=== PATIENT | male | born 1970 | race Caucasian/White ===

== ENCOUNTER 2017-05-09 11:24 | Outpatient (CLI) | payer OTHER ==
--- NOTE | 2017-05-09 12:10 | RAD ---
PA AND LATERAL CHEST: History: Cough. Chest pain. Comparison: 12-04-16 FINDINGS: The heart size is normal. The lungs are expanded without focal areas of consolidation, pneumothorax o r pleural effusions. Mild degenerative changes are seen in the spine. IMPRESSION: No acute process. POS: [facility]
== END 2017-05-09 11:25 | disposition home or self-care (01) ==
LOC: SCSRAD 11:24
PROVIDERS: ATTEND Nurse Practitioner
DX: R05 Cough (principal)
CPT/HCPCS: 71046

== ENCOUNTER 2018-01-15 19:38 | Emergency (ER) | payer OTHER ==
[2018-01-15] MEDS ORDERED: Metoclopramide HCl 10 MG/2 ML VIAL ONE (20:54)
[2018-01-15] MEDS ORDERED: Ketorolac Tromethamine 30 MG/ML VIAL ONE (20:54)
[2018-01-15] MEDS ORDERED: diphenhydrAMINE 50 MG/ML VIAL ONE (20:54)
[2018-01-15 20:59] LABS: #Basophils 0.1 thou/uL (0.0-0.2); #Eosinphils 0.2 thou/uL (0.0-0.7); #Lymphocytes 3.6 thou/uL (1.20-3.40); #Monocytes 0.6 thou/uL (0.11-0.59); #Neutrophils 4.5 thou/uL (1.40-6.50); %Basophils 0.7 % (0.0-1.0); %Eosinophils 2.3 % (0.0-10.0); %Lymphocytes 39.6 % (21.0-51.0); %Monocytes 6.9 % (0.0-10.0); %Neutrophils 50.5 % (42.0-75.0); Hemoglobin 17.4 g/dL (14.0-18.0); Mean Corpuscular HGB CONC 32.9 g/dL (32.0-36.0); Mean Corpuscular Hemoglobin 29.8 pg (27.0-31.0); Mean Corpuscular Volume 90.7 fL (78.0-98.0); Mean Platelet Volume 7.6 fL (7.4-10.4); Platelet Count 200 thou/uL (130-400); RBC Distribution Width 12.6 % (11.5-14.5); Red Blood Cell (RBC) Count 5.85 mill/uL (4.70-6.10)
--- NOTE | 2018-01-15 21:12 | RAD ---
AP VIEW CHEST: 01/15/2018 HISTORY: Headache. Chest pain. FINDINGS: AP view chest demonstrates the lungs to be well aerated. No evidence of active intrathoracic disease is seen. No evidence of effusions, pneumonia, or pneumothorax is seen. IMPRESSION: Unremarkable anterior-posterior view chest. POS: [facility]
[2018-01-15 21:20] LABS: ALT (SGPT) 29 U/L (8-55); AST (SGOT) 26 U/L (5-34); Albumin 4.5 g/dL (3.5-5.0); Alkaline Phosphatase 52 U/L (40-150); Anion Gap 12 mmol/L (10-20); BUN (Urea Nitrogen) 11 mg/dL (8.9-20.6); Calc. Creatinine Clearance 0 mL/min (70-130); Calcium 9.7 mg/dL (7.8-10.44); Carbon Dioxide 30 mmol/L (22-29); Chloride 104 mmol/L (98-107); Estimated GFR-MDRD 75; Globulin 3.5 g/dL (2.4-3.5); Glucose 95 mg/dL (70-105); Potassium 4.2 mmol/L (3.5-5.1); Sodium 142 mmol/L (136-145)
[2018-01-15 21:25] LABS: Troponin I Less than 0.010 ng/mL (< 0.028)
== END 2018-01-15 22:35 | disposition home or self-care (01) ==
LOC: ERS 19:38
DX: G43.909 Migraine, unspecified, not intractable, without status migrainosus (principal); K21.9 Gastro-esophageal reflux disease without esophagitis; G47.30 Sleep apnea, unspecified; Z87.891 Personal history of nicotine dependence; Z79.899 Other long term (current) drug therapy
CPT/HCPCS: 71045; 80053; 84484; 85025; 87804; 93005; 96365; 96375; J1200; J1885; J2765